=== PATIENT | female | born 1960 | race Caucasian/White ===

== ENCOUNTER → 2018-07-22 | Outpatient (CLI) | payer MEDICAID | LOC: FCPNEURO 14:45 ==

== ENCOUNTER → 2018-09-28 | Outpatient (CLI) | payer MEDICAID | LOC: CIMAGING 17:55 | DX: R04.2 Hemoptysis (principal); R07.0 Pain in throat | CPT/HCPCS: 71046-PO ==

== ENCOUNTER 2019-01-13 15:47 | Emergency (ER) | payer MEDICAID | END 2019-01-13 20:16 | disposition home or self-care (01) | DX: [UNRECOGNIZED DIAGNOSIS CODE] ==